=== PATIENT | female | born 1995 | race Two or more races ===

== ENCOUNTER 2018-05-30 08:52 | Emergency (ER) | payer OTHER ==
[~2018-05-30] VITALS: Ht 167.6 cm; Wt 59.0 kg
[~2018-05-30 08:52] MED LIST: MOTRIN600 MG PO; SEPTRA DS TABLE1 TAB PO
[2018-05-30] MEDS ORDERED: DOXYCYCLINE HY100 MG PO (13:37)
[2018-05-30] MEDS ORDERED: PERCOCET 5-3251 EACH PO (13:37)
== END 2018-05-30 14:58 | disposition home or self-care (01) ==
LOC: ER 08:52
DX: N73.8 Other specified female pelvic inflammatory diseases (principal)

== ENCOUNTER → 2018-12-25 | Emergency (ER) | payer OTHER ==
[~2018-12-25] VITALS: Ht 167.6 cm; Wt 15.9 kg
[~2018-12-25] MED LIST changes: +DOXYCYCLINE HY100 MG PO; +PERCOCET 5-3251 EACH PO
== END | disposition home or self-care (01) ==
LOC: ER 21:46
DX: J35.01 Chronic tonsillitis (principal); N93.8 Other specified abnormal uterine and vaginal bleeding

== ENCOUNTER 2019-01-13 13:57 | Emergency (ER) | payer OTHER ==
[~2019-01-13] VITALS: Ht 167.6 cm; Wt 59.0 kg
== END 2019-01-13 17:50 | disposition home or self-care (01) ==
LOC: ER 13:57
DX: S93.401A Sprain of unspecified ligament of right ankle, initial encounter (principal); X50.0XXA Overexertion from strenuous movement or load, initial encounter; Y93.41 Activity, dancing; Y92.89 Other specified places as the place of occurrence of the external cause; Y99.8 Other external cause status

== ENCOUNTER 2019-01-18 11:10 | Outpatient (CLI) | payer OTHER | END 2019-01-18 12:53 | disposition home or self-care (01) | LOC: LAB 11:10 | DX: N91.2 Amenorrhea, unspecified (principal) ==

== ENCOUNTER 2019-01-24 11:56 | Emergency (ER) | payer OTHER ==
[~2019-01-24] VITALS: Ht 167.6 cm; Wt 59.0 kg
== END 2019-01-24 17:39 | disposition home or self-care (01) ==
LOC: ER 11:56
DX: N94.6 Dysmenorrhea, unspecified (principal); R10.84 Generalized abdominal pain

== ENCOUNTER 2019-07-28 22:29 | Emergency (ER) | payer OTHER ==
[~2019-07-28] VITALS: Ht 167.6 cm; Wt 63.5 kg
[2019-07-29] MEDS ORDERED: DOLOGESIC 500-1 EACH PO (03:44)
== END 2019-07-29 04:09 | disposition home or self-care (01) ==
LOC: ER 22:29
DX: S30.0XXA Contusion of lower back and pelvis, initial encounter (principal); W18.39XA Other fall on same level, initial encounter; Y93.89 Activity, other specified; Y92.69 Other specified industrial and construction area as the place of occurrence of the external cause; Y99.8 Other external cause status